=== PATIENT | female | born 1950 | race Caucasian/White ===

== ENCOUNTER 2017-07-02 08:10 | Inpatient (IN) | payer OTHER, SELFPAY ==
[~2017-07-02] VITALS: Ht 162.6 cm; Wt 120.7 kg
[~2017-07-02 08:10] MED LIST: ALBU3IS INH; ALBU90I INH; ALBU90OI6 INH; AMOCLA875 PO; AZIT500 PO; Augmentin 875-1 EACH PO; BUDE6HFA; CEFU500 PO; DELTASONE20 MG PO; FLUSAL2505 IH; FLUT.05NI; Flonase 0.05% N16 GM; HYDCHL25 PO; IPRAIS NEB; LASIX; MODA200 PO; NYST100SU PO; POTASSIUM; PRED10 PO; PRED20 PO; SACC250C PO; Zithromax250 MG PO
[2017-07-02 08:52] LABS: BASOPHILS ABSOLUTE AUTO 0.05 K/mm3 (0.00-0.23); BASOPHILS PERCENT AUTO 1 % (0-2); EOSINOPHILS ABSOLUTE AUTO 0.02 K/mm3 (0.00-0.68); EOSINOPHILS PERCENT AUTO 0 % (0-6); Hematocrit 44.4 % (33.0-51.0); Hemoglobin 13.2 g/dL (11.5-16.0); IMMATURE GRAN ABSOLUTE AUTO 0.21 K/mm3 (0.00-0.10); IMMATURE GRAN PERCENT AUTO 2 % (0-1); LYMPHOCYTES ABSOLUTE AUTO 0.99 K/mm3 (0.84-5.20); LYMPHOCYTES PERCENT AUTO 9 % (21-46); MONOCYTES PERCENT AUTO 5 % (4-13); Mean Corpuscular HGB 27.5 pg (26.0-34.0); Mean Corpuscular HGB Conc 29.7 g/dL (31.5-36.5); Mean Corpuscular Volume 93 fL (80-100); Mean Platelet Volume 10.3 fL (9.1-12.4); NEUTROPHILS ABSOLUTE AUTO 8.85 K/mm3 (1.96-9.15); NEUTROPHILS PERCENT AUTO 83 % (41-73); Platelet Count 232 K/mm3 (150-400); RDW Standard Deviation 44.1 fL (35.1-46.3); White Blood Cell Count 10.62 K/mm3 (4.00-11.30)
[2017-07-02 09:06] LABS: PO2 Arterial 77.5 mmHg (80-100)
[2017-07-02 09:07] LABS: pH Blood Arterial 7.23 (7.35-7.45)
[2017-07-02 09:08] LABS: PCO2 Arterial > 105 mmHg (35-45)
[2017-07-02 09:08] LABS: Alanine Aminotransfer (ALT/SGP 22 U/L (12-78); Albumin, Blood 2.8 g/dL (3.4-5.0); Albumin/Globulin Ratio 0.6 (0.8-1.8); Alk Phos 83 U/L (50-136); Anion Gap 3 mmol/L (6-16); Aspartate Aminotrans (AST/SGOT 13 U/L (12-37); Bilirubin, Total 0.4 mg/dL (0.1-1.0); Blood Urea Nitrogen 19 mg/dL (8-24); Bun/Creatinine Ratio 34.2 (12.0-20.0); CO2, Blood 43 mmol/L (21-32); Calcium, Blood 9.1 mg/dL (8.5-10.1); Chloride, Blood 93 mmol/L (98-108); Creatinine, Blood 0.56 mg/dL (0.40-1.00); Glomerular Filtration Rate >60 (60-); Glucose, Blood 98 mg/dL (70-99); Potassium, Blood 4.7 mmol/L (3.5-5.5); Sodium, Blood 139 mmol/L (136-145); Total Protein, Blood 7.8 g/dL (6.4-8.2); Troponin I <0.015 ng/mL (0.000-0.040)
[2017-07-02] MEDS ORDERED: PRED10 PO (14:22)
[2017-07-02] MEDS ORDERED: AZIT250 PO (14:31)
[2017-07-02] MEDS ORDERED: BUDE6HFA INH (14:34)
[2017-07-02] MEDS ORDERED: SPIRIVA RESPIMAT4 G1 PO (14:35)
[2017-07-02] MEDS ORDERED: ALBU2.5V5 INH (14:37)
[2017-07-02] MEDS ORDERED: DOXY100T53 PO (14:38)
[2017-07-02 17:18] LABS: Source, Urine Clean Catch
[2017-07-02 17:23] LABS: Appearance, Urine Clear (Clear); Bilirubin, Urine Neg (Neg); Blood, Urine 3+ (Neg); Color, Urine Amber (P-Yellow); Glucose Qualitative, Urine Neg (Neg); Ketones, Urine 3+ (Neg); Leukocyte Esterase, Urine 1+ (Neg); Nitrite, Urine Pos (Neg); Protein, Urine 2+ (Neg); Urobilinogen, Urine 1+ (Normal)
[2017-07-02 17:35] LABS: Granular Casts 0-2 /lpf (0); Hyaline Casts 0-2 /lpf (0-2)
[2017-07-02 17:36] LABS: Bacteria Few /hpf; Squamous Epithelial Cells Mod /hpf (Few)
[2017-07-02 17:37] LABS: Yeast/Fungi Urine Rare /hpf
[2017-07-03 04:23] LABS: BASOPHILS ABSOLUTE AUTO 0.01 K/mm3 (0.00-0.23); BASOPHILS PERCENT AUTO 0 % (0-2); EOSINOPHILS PERCENT AUTO 0 % (0-6); Hematocrit 38.4 % (33.0-51.0); Hemoglobin 11.7 g/dL (11.5-16.0); IMMATURE GRAN ABSOLUTE AUTO 0.15 K/mm3 (0.00-0.10); IMMATURE GRAN PERCENT AUTO 2 % (0-1); LYMPHOCYTES PERCENT AUTO 6 % (21-46); MONOCYTES ABSOLUTE AUTO 0.08 K/mm3 (0.16-1.47); MONOCYTES PERCENT AUTO 1 % (4-13); Mean Corpuscular HGB 27.9 pg (26.0-34.0); Mean Corpuscular HGB Conc 30.5 g/dL (31.5-36.5); Mean Corpuscular Volume 92 fL (80-100); Mean Platelet Volume 10.7 fL (9.1-12.4); NEUTROPHILS ABSOLUTE AUTO 6.27 K/mm3 (1.96-9.15); NEUTROPHILS PERCENT AUTO 91 % (41-73); Platelet Count 221 K/mm3 (150-400); RDW Coefficient Variation 12.9 % (11.7-14.2); RDW Standard Deviation 42.9 fL (35.1-46.3); Red Blood Cell Count 4.19 M/mm3 (3.80-5.20); White Blood Cell Count 6.91 K/mm3 (4.00-11.30)
[2017-07-03 04:42] LABS: Anion Gap 1 mmol/L (6-16); Blood Urea Nitrogen 21 mg/dL (8-24); CO2, Blood 41 mmol/L (21-32); Calcium, Blood 8.8 mg/dL (8.5-10.1); Chloride, Blood 98 mmol/L (98-108); Creatinine, Blood 0.49 mg/dL (0.40-1.00); Glomerular Filtration Rate >60 (60-); Glucose, Blood 139 mg/dL (70-99); Magnesium, Blood 2.3 mg/dL (1.6-2.4); Potassium, Blood 4.9 mmol/L (3.5-5.5); Sodium, Blood 140 mmol/L (136-145)
[2017-07-03 05:23] LABS: PCO2 Arterial 88 mmHg (35-45); PO2 Arterial 84.4 mmHg (80-100); pH Blood Arterial 7.31 (7.35-7.45)
[2017-07-04 04:06] LABS: BASOPHILS ABSOLUTE AUTO 0.01 K/mm3 (0.00-0.23); BASOPHILS PERCENT AUTO 0 % (0-2); EOSINOPHILS PERCENT AUTO 0 % (0-6); Hematocrit 39.1 % (33.0-51.0); Hemoglobin 12.2 g/dL (11.5-16.0); IMMATURE GRAN ABSOLUTE AUTO 0.14 K/mm3 (0.00-0.10); IMMATURE GRAN PERCENT AUTO 2 % (0-1); LYMPHOCYTES ABSOLUTE AUTO 0.47 K/mm3 (0.84-5.20); LYMPHOCYTES PERCENT AUTO 6 % (21-46); MONOCYTES ABSOLUTE AUTO 0.17 K/mm3 (0.16-1.47); MONOCYTES PERCENT AUTO 2 % (4-13); Mean Corpuscular HGB 28.2 pg (26.0-34.0); Mean Corpuscular HGB Conc 31.2 g/dL (31.5-36.5); Mean Corpuscular Volume 91 fL (80-100); Mean Platelet Volume 10.6 fL (9.1-12.4); NEUTROPHILS ABSOLUTE AUTO 7.28 K/mm3 (1.96-9.15); NEUTROPHILS PERCENT AUTO 90 % (41-73); Platelet Count 220 K/mm3 (150-400); RDW Coefficient Variation 12.9 % (11.7-14.2); RDW Standard Deviation 42.3 fL (35.1-46.3); Red Blood Cell Count 4.32 M/mm3 (3.80-5.20); White Blood Cell Count 8.07 K/mm3 (4.00-11.30)
[2017-07-04 04:33] LABS: Anion Gap 2 mmol/L (6-16); Blood Urea Nitrogen 23 mg/dL (8-24); Bun/Creatinine Ratio 42.6 (12.0-20.0); CO2, Blood 39 mmol/L (21-32); Calcium, Blood 9.1 mg/dL (8.5-10.1); Chloride, Blood 99 mmol/L (98-108); Creatinine, Blood 0.54 mg/dL (0.40-1.00); Glomerular Filtration Rate >60 (60-); Glucose, Blood 127 mg/dL (70-99); Sodium, Blood 140 mmol/L (136-145)
[2017-07-04 05:07] LABS: PO2 Arterial 67.5 mmHg (80-100); pH Blood Arterial 7.37 (7.35-7.45)
[2017-07-04 05:08] LABS: PCO2 Arterial 70.7 mmHg (35-45)
[2017-07-05 03:50] LABS: BASOPHILS ABSOLUTE AUTO 0.01 K/mm3 (0.00-0.23); BASOPHILS PERCENT AUTO 0 % (0-2); EOSINOPHILS PERCENT AUTO 0 % (0-6); Hematocrit 37.8 % (33.0-51.0); Hemoglobin 11.9 g/dL (11.5-16.0); IMMATURE GRAN ABSOLUTE AUTO 0.22 K/mm3 (0.00-0.10); IMMATURE GRAN PERCENT AUTO 4 % (0-1); LYMPHOCYTES ABSOLUTE AUTO 0.46 K/mm3 (0.84-5.20); LYMPHOCYTES PERCENT AUTO 7 % (21-46); MONOCYTES ABSOLUTE AUTO 0.22 K/mm3 (0.16-1.47); MONOCYTES PERCENT AUTO 4 % (4-13); Mean Corpuscular HGB 27.7 pg (26.0-34.0); Mean Corpuscular HGB Conc 31.5 g/dL (31.5-36.5); Mean Platelet Volume 10.6 fL (9.1-12.4); NEUTROPHILS ABSOLUTE AUTO 5.37 K/mm3 (1.96-9.15); NEUTROPHILS PERCENT AUTO 86 % (41-73); Platelet Count 216 K/mm3 (150-400); RDW Coefficient Variation 12.9 % (11.7-14.2); RDW Standard Deviation 41.7 fL (35.1-46.3); Red Blood Cell Count 4.29 M/mm3 (3.80-5.20); White Blood Cell Count 6.28 K/mm3 (4.00-11.30)
[2017-07-05 03:56] LABS: Mean Corpuscular Volume 88 fL (80-100)
[2017-07-05 04:11] LABS: Anion Gap 2 mmol/L (6-16); Blood Urea Nitrogen 23 mg/dL (8-24); Bun/Creatinine Ratio 39.9 (12.0-20.0); CO2, Blood 39 mmol/L (21-32); Calcium, Blood 8.9 mg/dL (8.5-10.1); Chloride, Blood 98 mmol/L (98-108); Creatinine, Blood 0.58 mg/dL (0.40-1.00); Glomerular Filtration Rate >60 (60-); Glucose, Blood 127 mg/dL (70-99); Potassium, Blood 4.7 mmol/L (3.5-5.5); Sodium, Blood 139 mmol/L (136-145)
[2017-07-05] MEDS ORDERED: GUAI600T33 PO (10:33)
[2017-07-05] MEDS ORDERED: ACET325 PO (10:33)
[2017-07-05] MEDS ORDERED: FAMO20 PO (10:33)
[2017-07-05] MEDS ORDERED: NICO21TP TOP (10:34)
== END 2017-07-05 13:50 | disposition home or self-care (01) | DRG 189 ==
LOC: ER 08:10 → PCU 11:05
PROVIDERS: Family Medicine; Internal Medicine
DX: J96.22 Acute and chronic respiratory failure with hypercapnia (principal); G93.41 Metabolic encephalopathy; R65.10 Systemic inflammatory response syndrome (SIRS) of non-infectious origin without acute organ dysfunction; J44.0 Chronic obstructive pulmonary disease with (acute) lower respiratory infection; Z99.81 Dependence on supplemental oxygen; J44.1 Chronic obstructive pulmonary disease with (acute) exacerbation; J96.21 Acute and chronic respiratory failure with hypoxia; D86.9 Sarcoidosis, unspecified; J20.8 Acute bronchitis due to other specified organisms
CPT/HCPCS: 36415; 36600; 71045; 80048; 80053; 81001; 82803; 83605; 83735; 83880; 84145; 84484; 85025; 87040; 87086; 93005; 93010; 94640; 94644; 94660; 94762; 96365; 96375; 99285; J0456; J0696; J1650; J2930; J3480; J7050

== ENCOUNTER 2018-06-15 11:48 | Emergency (ER) | payer OTHER ==
[~2018-06-15] VITALS: Ht 162.6 cm; Wt 128.8 kg
[~2018-06-15 11:48] MED LIST changes: +ACET325 PO; +ALBU2.5V5 INH; +AZIT250 PO; +BUDE6HFA INH; +DOXY100T53 PO; +FAMO20 PO; +GUAI600T33 PO; +NICO21TP TOP; +SPIRIVA RESPIMAT4 G1 PO
[2018-06-15 13:09] LABS: BASOPHILS ABSOLUTE AUTO 0.09 K/mm3 (0.00-0.23); BASOPHILS PERCENT AUTO 1 % (0-2); EOSINOPHILS ABSOLUTE AUTO 0.07 K/mm3 (0.00-0.68); EOSINOPHILS PERCENT AUTO 1 % (0-6); Hematocrit 46.1 % (33.0-51.0); Hemoglobin 14.6 g/dL (11.5-16.0); IMMATURE GRAN ABSOLUTE AUTO 0.42 K/mm3 (0.00-0.10); IMMATURE GRAN PERCENT AUTO 4 % (0-1); LYMPHOCYTES ABSOLUTE AUTO 0.73 K/mm3 (0.84-5.20); LYMPHOCYTES PERCENT AUTO 7 % (21-46); MONOCYTES ABSOLUTE AUTO 0.71 K/mm3 (0.16-1.47); MONOCYTES PERCENT AUTO 7 % (4-13); Mean Corpuscular HGB 28.9 pg (26.0-34.0); Mean Corpuscular HGB Conc 31.7 g/dL (31.5-36.5); Mean Corpuscular Volume 91 fL (80-100); NEUTROPHILS ABSOLUTE AUTO 8.86 K/mm3 (1.96-9.15); NEUTROPHILS PERCENT AUTO 82 % (41-73); RDW Coefficient Variation 12.8 % (11.7-14.2); RDW Standard Deviation 42.8 fL (35.1-46.3); Red Blood Cell Count 5.05 M/mm3 (3.80-5.20); White Blood Cell Count 10.88 K/mm3 (4.00-11.30)
[2018-06-15 13:13] LABS: Mean Platelet Volume 10.7 fL (9.1-12.4)
[2018-06-15 13:20] LABS: Platelet Count 228 K/mm3 (150-400)
[2018-06-15 13:22] LABS: Base Excess Venous 20.9 mmol/L; Bicarbonate Venous 40.6 mmol/L (24.0-30.0); PCO2 Venous 66.5 mmHg (38-42); PO2 Venous 37.7 mmHg (38-42); pH Blood Venous 7.44 (7.34-7.37)
[2018-06-15 13:27] LABS: Alanine Aminotransfer (ALT/SGP 39 U/L (12-78); Albumin/Globulin Ratio 0.7 (0.8-1.8); Alk Phos 102 U/L (50-136); Anion Gap 4 mmol/L (6-16); Aspartate Aminotrans (AST/SGOT 24 U/L (12-37); Bilirubin, Total 0.4 mg/dL (0.1-1.0); Blood Urea Nitrogen 17 mg/dL (8-24); Bun/Creatinine Ratio 25.1 (12.0-20.0); CO2, Blood 41 mmol/L (21-32); Calcium, Blood 9.4 mg/dL (8.5-10.1); Chloride, Blood 95 mmol/L (98-108); Creatinine, Blood 0.68 mg/dL (0.40-1.00); Globulin, Blood 4.1 g/dL (2.2-4.0); Glomerular Filtration Rate >60 (60-); Glucose, Blood 105 mg/dL (70-99); Potassium, Blood 3.9 mmol/L (3.5-5.5); Sodium, Blood 140 mmol/L (136-145); Total Protein, Blood 7.1 g/dL (6.4-8.2); Troponin I <0.015 ng/mL (0.000-0.040)
[2018-06-15 13:54] LABS: Source, Urine Clean Catch
[2018-06-15 14:04] LABS: Appearance, Urine Cloudy (Clear); Blood, Urine 1+ (Neg); Color, Urine Yellow (P-Yellow); Glucose Qualitative, Urine Neg (Neg); Ketones, Urine Neg (Neg); Leukocyte Esterase, Urine 1+ (Neg); Nitrite, Urine Neg (Neg); Protein, Urine 1+ (Neg); Specific Gravity, Urine 1.025 (1.003-1.022); Urobilinogen, Urine 2+ (Normal)
[2018-06-15 14:15] LABS: Bilirubin, Urine 1+ (Neg)
[2018-06-15 14:19] LABS: Bacteria Rare /hpf; Calcium Oxalate Crystals Many /hpf; Red Blood Cells, Urine 0-2 /hpf (0-2); Squamous Epithelial Cells Few /hpf (Few); White Blood Cells, Urine 0-2 /hpf (0-5)
[2018-06-15] MEDS ORDERED: Prednisone20 MG PO (15:45)
== END 2018-06-15 16:17 | disposition home or self-care (01) ==
LOC: ER 11:48
PROVIDERS: Emergency Medicine; Physician Assistant
DX: J44.1 Chronic obstructive pulmonary disease with (acute) exacerbation (principal); F17.200 Nicotine dependence, unspecified, uncomplicated; Z88.8 Allergy status to other drugs, medicaments and biological substances; Z88.5 Allergy status to narcotic agent; Z79.899 Other long term (current) drug therapy
CPT/HCPCS: 36415; 71046; 80053; 81001; 82803; 83880; 84484; 85025; 87077; 87086; 87186; 93005; 93010; 96361; 96374; 99285-25; J2930; J7030

== ENCOUNTER 2019-09-13 10:00 | Inpatient (IN) | payer OTHER ==
[~2019-09-13] VITALS: Ht 170.2 cm; Wt 117.0 kg
[~2019-09-13 10:00] MED LIST changes: -ALBU2.5V5 INH; -BUDE6HFA INH; +Prednisone20 MG PO
[2019-09-13 10:18] LABS: BASOPHILS ABSOLUTE AUTO 0.04 K/mm3 (0.00-0.23); BASOPHILS PERCENT AUTO 0 % (0-2); EOSINOPHILS ABSOLUTE AUTO 0.06 K/mm3 (0.00-0.68); EOSINOPHILS PERCENT AUTO 1 % (0-6); Hematocrit 42.5 % (33.0-51.0); Hemoglobin 12.5 g/dL (11.5-16.0); IMMATURE GRAN ABSOLUTE AUTO 0.12 K/mm3 (0.00-0.10); IMMATURE GRAN PERCENT AUTO 1 % (0-1); LYMPHOCYTES ABSOLUTE AUTO 0.71 K/mm3 (0.84-5.20); LYMPHOCYTES PERCENT AUTO 7 % (21-46); MONOCYTES ABSOLUTE AUTO 0.55 K/mm3 (0.16-1.47); MONOCYTES PERCENT AUTO 5 % (4-13); Mean Corpuscular HGB Conc 29.4 g/dL (31.5-36.5); Mean Corpuscular Volume 95 fL (80-100); Mean Platelet Volume 10.3 fL (9.1-12.4); NEUTROPHILS ABSOLUTE AUTO 9.45 K/mm3 (1.96-9.15); NEUTROPHILS PERCENT AUTO 87 % (41-73); Platelet Count 181 K/mm3 (150-400); RDW Standard Deviation 45.1 fL (35.1-46.3); Red Blood Cell Count 4.47 M/mm3 (3.80-5.20); White Blood Cell Count 10.93 K/mm3 (4.00-11.30)
[2019-09-13 10:37] LABS: Alanine Aminotransfer (ALT/SGP 12 U/L (12-78); Albumin, Blood 2.7 g/dL (3.4-5.0); Albumin/Globulin Ratio 0.6 (0.8-1.8); Alk Phos 100 U/L (50-136); Anion Gap 3 mmol/L (6-16); Aspartate Aminotrans (AST/SGOT 14 U/L (12-37); Bilirubin, Total 0.5 mg/dL (0.1-1.0); Blood Urea Nitrogen 21 mg/dL (8-24); Bun/Creatinine Ratio 32.7 (12.0-20.0); CO2, Blood 38 mmol/L (21-32); Calcium, Blood 8.7 mg/dL (8.5-10.1); Chloride, Blood 98 mmol/L (98-108); Creatinine, Blood 0.64 mg/dL (0.40-1.00); Globulin, Blood 4.3 g/dL (2.2-4.0); Glomerular Filtration Rate >60 (60-); Glucose, Blood 132 mg/dL (70-99); Potassium, Blood 4.8 mmol/L (3.5-5.5); Sodium, Blood 139 mmol/L (136-145); Troponin I <0.015 ng/mL (0.000-0.040)
[2019-09-13 10:44] LABS: PCO2 Arterial 103 mmHg (35-45); PO2 Arterial 70.3 mmHg (80-100); pH Blood Arterial 7.24 (7.35-7.45)
[2019-09-13 11:41] LABS: Base Excess Venous 17.8 mmol/L; Bicarbonate Venous 36.8 mmol/L (24.0-30.0); PCO2 Venous 93.3 mmHg (38-42); pH Blood Venous 7.29 (7.34-7.37)
[2019-09-13] MEDS ORDERED: ALBU2.5V5 NEB (12:12)
[2019-09-13] MEDS ORDERED: FLUT1DIS5 INH (12:12)
[2019-09-13] MEDS ORDERED: TRAZ150T57 PO (13:27)
[2019-09-13 14:26] LABS: Bicarbonate Venous 38.1 mmol/L (24.0-30.0); PCO2 Venous 79.7 mmHg (38-42); pH Blood Venous 7.35 (7.34-7.37)
--- NOTE | 2019-09-13 18:02 | NUR ---
MEAL ASSIST = ASPIRATION RISK PATIENT SAT UP AT [address] ON NC FROM BIPAP. PATIENT WAS UNABLE TO STAY AWAKE WHILE EATING. PATIENT EDUCATED THAT SHE COULD NOT EAT UNTIL SHE COULD STAY AWAKE FOR A LONGER PERIOD OF TIME. BIPAP PLACE BACK ON PATIENT.
--- NOTE | 2019-09-13 18:03 | NUR ---
PCU DAYSHIFT SUMMARY PATIENT ALERT AND ORIENTED TO SELF AND LOCATION - DROWSINESS/WEAKNESS NOTED. PATIENT MODERATELY RESTFUL - AWAKES WITH VERBAL STIMULI. HEART RATE ST C/ BBB IN 110'S. BIPAP IN PLACE FOR MAJORITY OF THIS RN'S SHIFT. ATTEMPTED TO TRANSFER PATIENT UP TO BEDSIDE COMMODE, WHILE PATIENT WAS DANGLING FROM BED PATIENT WAS UNABLE TO SUPPORT TORSO - PATIENT UNABLE TO TRANSFER AT THIS TIME. PATIENT PLACED ON BEDPAN - NO URINE NOTED. PATIENT ON 3 LPM NC WHEN NOT ON BIPAP - HOME DOSE OF O2. SMALL SKIN TEAR NOTED BETWEEN BUTTOCKS. PATIENT INCONTINENT OF STOOL THIS SHIFT. PATIENT IS NOW RESTFUL ON BEDREST WITH BIPAP IN PLACE AND CONTINUOUS BIOX MONITORING. WILL CONTINUE TO MONITOR AND REPORT TO NOC SHIFT RN.
[2019-09-13 20:08] LABS: Source, Urine Catheter
[2019-09-13 20:21] LABS: Blood, Urine 3+ (Neg); Glucose Qualitative, Urine Neg (Neg); Ketones, Urine Neg (Neg); Leukocyte Esterase, Urine 1+ (Neg); Nitrite, Urine Neg (Neg); Protein, Urine 2+ (Neg); Specific Gravity, Urine 1.025 (1.003-1.022); Urobilinogen, Urine 3+ (Normal)
[2019-09-13 20:24] LABS: Appearance, Urine Cloudy (Clear); Bilirubin, Urine 1+ (Neg); Color, Urine Amber (P-Yellow)
[2019-09-13 20:26] LABS: Bacteria Many /hpf; Red Blood Cells, Urine Rare /hpf (0-2); Squamous Epithelial Cells Not Seen /hpf (Few); White Blood Cells, Urine 25-50 /hpf (0-5)
--- NOTE | 2019-09-14 01:00 | NUR ---
Update: Patient woke up and was able to interact with me and nurse Eric. She was coherent and able to verbalize why she was in the hospital.
[2019-09-14 03:50] LABS: BASOPHILS ABSOLUTE AUTO 0.03 K/mm3 (0.00-0.23); BASOPHILS PERCENT AUTO 0 % (0-2); EOSINOPHILS ABSOLUTE AUTO 0.08 K/mm3 (0.00-0.68); EOSINOPHILS PERCENT AUTO 1 % (0-6); Hematocrit 39.6 % (33.0-51.0); Hemoglobin 11.6 g/dL (11.5-16.0); IMMATURE GRAN ABSOLUTE AUTO 0.07 K/mm3 (0.00-0.10); IMMATURE GRAN PERCENT AUTO 1 % (0-1); LYMPHOCYTES ABSOLUTE AUTO 0.84 K/mm3 (0.84-5.20); LYMPHOCYTES PERCENT AUTO 12 % (21-46); MONOCYTES ABSOLUTE AUTO 0.43 K/mm3 (0.16-1.47); MONOCYTES PERCENT AUTO 6 % (4-13); Mean Corpuscular HGB Conc 29.3 g/dL (31.5-36.5); Mean Corpuscular Volume 95 fL (80-100); Mean Platelet Volume 10.7 fL (9.1-12.4); NEUTROPHILS ABSOLUTE AUTO 5.61 K/mm3 (1.96-9.15); NEUTROPHILS PERCENT AUTO 80 % (41-73); Platelet Count 145 K/mm3 (150-400); RDW Coefficient Variation 12.8 % (11.7-14.2); RDW Standard Deviation 45.1 fL (35.1-46.3); Red Blood Cell Count 4.15 M/mm3 (3.80-5.20); White Blood Cell Count 7.06 K/mm3 (4.00-11.30)
[2019-09-14 04:07] LABS: Blood Urea Nitrogen 27 mg/dL (8-24); Bun/Creatinine Ratio 44.9 (12.0-20.0); Calcium, Blood 8.3 mg/dL (8.5-10.1); Chloride, Blood 97 mmol/L (98-108); Glomerular Filtration Rate >60 (60-); Glucose, Blood 85 mg/dL (70-99); Potassium, Blood 4.5 mmol/L (3.5-5.5); Sodium, Blood 142 mmol/L (136-145)
[2019-09-14 04:31] LABS: Anion Gap 2 mmol/L (6-16); CO2, Blood 43 mmol/L (21-32)
--- NOTE | 2019-09-14 06:44 | NUR ---
Shift Summary Patient was drowsy at beginning of the shift but became more alert and oreinted throughout the night. Interacted well with staff. Wore BIPAP majority of the night and tolerated several 15 minute breaks from BIPAP, on 5 LPM via nasal cannula. Pt drank fluids and was repositioned several times.
--- NOTE | 2019-09-14 07:18 | NUR ---
ASSUMED CARE AT 0700, REPORT FROM CALVIN SUN. SITTING IN HIGH FOWLERS IN BED WITH BIPAP ON. CURRENT SETTINGS 45% 02 12/02 RATE OF 14. AWAKE AND ANSWERING QUESTIONS AT THIS TIME. KAUR IN PLACE DRAINING STRAW COLORED URINE. RT TO ROOM, WILL CONTINUE TO MONITOR.
--- NOTE | 2019-09-14 09:44 | NUR ---
REMOVED BIPAP PER DR. BECERRIL. PLACED ON 5L NC 02. PT STATES NORMAL HOME O2 USE IS 3-4L. BASELINE O2 SATS PER PT ARE 89%. WILL CONTINUE TO MONITOR.
--- NOTE | 2019-09-14 14:00 | NUR ---
Patient is lying in bed and alert. Patient shares about her fall and her medical issues. Patient talks about her family and her belief system. Patient says that she hates to bother God with her small needs. I listen empathically, normalize patient's experience and provide pastoral certified travel counselor, recitation of scripture and prayer. PAtient responds well and shows signs of improved peace. I will continue to remain available to patient and family.
--- NOTE | 2019-09-14 15:45 | NUR ---
PT STATES SHE IS FEELING FOGGY HEADED. STATES SHE THINKS SHE NEEDS HER BIPAP ON. RT TO ROOM TO EVALUATE. BIPAP STARTED BY RT.
--- NOTE | 2019-09-14 17:39 | NUR ---
SHIFT SUMMARY; A/A/OX4 THROUGHOUT SHIFT. BIPAP REMOVED IN AM PER DR. BECERRIL. PLACED ON 5L O2 VIA NC. PT STATES WEARS 3-4L WHILE AT HOME WITH BASELINE SATS 89-90%. REQUESTED BIPAP IN LATE AFTERNOON FOR FEELING "WHOOZY IN HEAD". RT PLACED AT 40% 12/02. WORE FOR APPROX 1 HOUR. 5L NC AT THIS TIME, STATES IS FEELING WELL. KAUR CATH IN PLACE DRAINING CLEAR YELLOW URINE. ASSISTED TO BEDSIDE COMMODE DURING SHIFT WITH 1 PERSON ASSIST. VSS, WILL CONTINUE TO MONITOR UNTIL CHANGE OF SHIFT.
--- NOTE | 2019-09-14 19:40 | NUR ---
ASSUMED CARE OF PT, SHE IS RESTING QUIETLY RECLINING IN BED, WATCHING TV AND CONVERSING WITH SON ON TELEPHONE IN ROOM. SHE DENIES N/V, DENIES CP/PRESSURE, DENIES SOB/DYSPNEA GREATER THAN BASELINE, SHE IS SPEAKING IN FULL SENTENCES AND IS ABLE TO STATE THAT SHE IS IN [facility], 2019 AND DESCRIBES EVENTS SURROUNDING ADMISSION TO HOSPITAL. LUNGS ARE COARSE THROUGHOUT, DIM BASES BILAT, SATS ARE MAINTAINED TO LOW 90S WITH OXYGEN VIA NASAL CANNULA AT 5L/MIN HOME FLOW RATE IS 3-4 L/MIN, NO VISIBLE INCREASED WORK OF BREATHING AT THIS TIME. HRR, S1 AND S2 PRESENT, DIFFICULT TO AUSCULTATE SECONDARY TO RESPIRATORY NOISE, PRESSURES MAINTAINING, SKIN IS PWD, BRISK CAP REFILL. NORMOACTIVE BOWEL TONES PRESENT X 4, ABD SOFT, NO GRIMACING OR TENDERNESS REPORTED WITH PALPATION. KAUR CATH IN PLACE DRAINING CLEAR DARK YELLOW URINE TO GRAVITY. IV TO LEFT FOREARM DOES NOT FLUSH AT THIS TIME, DC'D CATH INTACT, PT TOLERATED WELL. IV TO RIGHT AC FLUSHES WELL, SITE WNL, DRESSING CDI.
--- NOTE | 2019-09-15 05:51 | NUR ---
Pt rests quietly throughout shift, did wear bipap a few times for around 1-1.5 hours each time, she has expressed frustration with hospital bipap mask. She denies nausea throughout shift. Sats maintain with oxygen at 5 l/min via nasal cannula, home flow rate is 3-4 l/min, she has requested bipap in addition to requesting breaks from bipap. She remains fully oriented and easily arousable throughout shift.
--- NOTE | 2019-09-15 07:23 | NUR ---
ASSUMED CARE: PT AWAKE, TALKING TO STAFF. 96% ON 5L O2. TITRATED DOWN TO 4L. DENIES NEEDS OR CONCERNS AT THIS TIME.
--- NOTE | 2019-09-15 10:28 | NUR ---
REPORT GIVEN TO SAURABH SIMPSON. PT TRANSPORTED TO ROOM 357 VIA WHEEL CHAIR BY DEVELOPER ARCHITECT AFTER BATH GIVEN. NO ACUTE NEEDS OR CONCERNS.
--- NOTE | 2019-09-15 15:18 | NUR ---
TRANSER OF CARE BEDSIDE REPORT GIVEN TO RECEIVING NURSE ALANNA AND PATIENT.
--- NOTE | 2019-09-15 18:17 | NUR ---
SHIFT SUMMARY PCU TRANSFER TO MED FLOOR THIS SHIFT. PT DENIES PAIN, PLEASANT AND ORIENTED. HAD BETWEEN 3-4 L OXYGEN BY NC WHILE AWAKE, AND USES CPAP FOR NAPS. CALLS APPROPRIATELY TO GET OOB FOR SBA TO [facility]. WCTM
--- NOTE | 2019-09-15 18:45 | NUR ---
VERY FOUL SMELLING URINE, DR BECERRIL INFORMED AND ORDERED UA
[2019-09-15 22:54] LABS: Source, Urine Voided
[2019-09-15 22:57] LABS: Bilirubin, Urine Neg (Neg); Blood, Urine 1+ (Neg); Glucose Qualitative, Urine Neg (Neg); Ketones, Urine Neg (Neg); Leukocyte Esterase, Urine 2+ (Neg); Nitrite, Urine Pos (Neg); Protein, Urine Neg (Neg); Specific Gravity, Urine 1.005 (1.003-1.022); Urobilinogen, Urine NORM (Normal)
[2019-09-15 23:02] LABS: Appearance, Urine Hazy (Clear); Color, Urine Yellow (P-Yellow)
[2019-09-15 23:03] LABS: Bacteria Many /hpf; Red Blood Cells, Urine 0-2 /hpf (0-2); Squamous Epithelial Cells Few /hpf (Few); White Blood Cells, Urine 25-50 /hpf (0-5)
[2019-09-16 04:44] LABS: PCO2 Venous 40.1 mmHg (38-42); PO2 Venous 198 mmHg (38-42); pH Blood Venous 7.61 (7.34-7.37)
[2019-09-16 04:45] LABS: Base Excess Venous 18.4 mmol/L; Bicarbonate Venous 40.9 mmol/L (24.0-30.0)
[2019-09-16 05:10] LABS: Anion Gap 1 mmol/L (6-16); Blood Urea Nitrogen 18 mg/dL (8-24); Bun/Creatinine Ratio 29.2 (12.0-20.0); CO2, Blood 39 mmol/L (21-32); Calcium, Blood 8.6 mg/dL (8.5-10.1); Chloride, Blood 100 mmol/L (98-108); Creatinine, Blood 0.62 mg/dL (0.40-1.00); Glomerular Filtration Rate >60 (60-); Glucose, Blood 98 mg/dL (70-99); Hematocrit 35.9 % (33.0-51.0); Hemoglobin 11.6 g/dL (11.5-16.0); Mean Corpuscular HGB 28.2 pg (26.0-34.0); Mean Corpuscular HGB Conc 32.3 g/dL (31.5-36.5); Mean Platelet Volume 10.9 fL (9.1-12.4); Platelet Count 183 K/mm3 (150-400); Potassium, Blood 4.5 mmol/L (3.5-5.5); RDW Coefficient Variation 13.1 % (11.7-14.2); RDW Standard Deviation 41.1 fL (35.1-46.3); Red Blood Cell Count 4.11 M/mm3 (3.80-5.20); Sodium, Blood 140 mmol/L (136-145); White Blood Cell Count 8.55 K/mm3 (4.00-11.30)
[2019-09-16 05:11] LABS: Mean Corpuscular Volume 87 fL (80-100)
--- NOTE | 2019-09-16 06:19 | NUR ---
SHIFT SUMMARY PT IS A 69 Y/O FEMALE, ADMITTED FOR ACUTE ON CHRONIC RESPIRATORY FAILURE. PT IS A&O X 4, 1PA TO THE BATHROOM C FWW. NO COMPAINTS OF PAIN OR NAUSEA, BUT MILD INCREASED SOB C EXERTION. PT IS ON 3-4L O2 VIA NC AT BASELINE, AND USES A BIPAP WHILE SLEEPING. VITAL SIGNS STABLE. TELE SHOWED NSR IN THE 80S. PT SLEPT WELL THROUGH THE NIGHT. NO ACUTE CHANGES IN PT CONDITION NOTED. WILL CONTINUE TO MONITOR AND TREAT PER EMAR UNTIL HAND OFF TO DAY SHIFT RN.
--- NOTE | 2019-09-16 16:45 | NUR ---
SHIFT SUMMARY PATIENT DENIES PAIN, NAUSEA, AND SHORTNSS OF BREATH. PATIENT SWITCHING BETWEEN BIPAP AND NASAL CANULA THIS SHIFT TO MAINTAIN OXYGEN SATURATION ABOVE 90%. RT FOLLOWING PATIENT. PATIENT UP TO [facility]SC ONE ASSIST. PATIENT STATES SHE STILL FEELS WEAK. CALL LIGHT IN REACH.
--- NOTE | 2019-09-17 05:00 | NUR ---
SHIFT SUMMARY PT PLEASANT AND COOPERATIVE. RESPIRATIONS EVEN AND UNLABORED, HOWEVER PT'S LUNGS CONTINUE TO SOUND COARSE AND WHEEZY THROUGHOUT. PT REMAINED ON 4 L O2, VIA NC WHILE AWAKE, AND BLED INTO BIPAP WHILE SLEEPING. PT DOES GET SOME SOB WITH EXERTION BUT RECOVERS WELL. RECLINER REQUESTED BY PATIENT THIS AM. RECLINER PLACED IN ROOM. PT HAS REMAINED IN BED THROUGHOUT THE EVENING BUT REQUESTED TO GET UP TO RECLINER DURING THE DAY. NO COMPLAINTS OF PAIN. VITAL SIGNS STABLE. NO ACUTE CHANGES THIS SHIFT. WILL CONTINUE TO MONITOR AND REPORT TO DAY RN.
--- NOTE | 2019-09-17 14:33 | NUR ---
PATIENT HAS BEEN WITHOUT PAIN AND DISCOMFORT TODAY. O2 SATS STRUGGLE TO REMAIN ABOVE 90%, HAD TO FINALLY TURN OXYGEN TO 5L NC. PATIENT IS DYSPNIC WITH EXERTION. BREATHING TREATMENTS PER RT SCHEDULED. TELE AND IV DISCONTINUED PER DR BECERRIL. NO ACUTE CHANGES NOTED OR REPORTED AT THIS TIME. WILL CONTINUE TO MONITOR AND PROVIDE CARE NEEDED.
--- NOTE | 2019-09-18 05:03 | NUR ---
SHIFT SUMMARY AOX4. VSS. DENIES PAIN, N/V, OR DYSPNEA. E/U RESPIRATIONS. SPO2 93-96% ON 3L O2. WORE BIPAP T/O NIGHT. LUNGS HAVE WHEEZES T/O. BREATHING TX GIVEN PER RT. PT ANTICIPATING BEING DC TODAY, STATES SHE FEELS "MUCH BETTER". FILOMENA ASSIST TO [facility]. HAS MULTIPLE FAMILY MEMBERS THAT LIVE NEAR HER FOR ASSISTANCE. CALL LIGHT IN REACH.
[2019-09-18] MEDS ORDERED: Culturelle1 CAP PO (11:56)
[2019-09-18] MEDS ORDERED: CEPH500 PO (11:56)
[2019-09-18] MEDS ORDERED: Prednisone10 MG PO (11:59)
[2019-09-18] MEDS ORDERED: TIOT18 INH (12:00)
--- NOTE | 2019-09-18 13:10 | NUR ---
SHIFT SUMMARY PT ALERT AND ORIENTED THROUGOUT THIS SHIFT. PT COOPERATIVE WITH CARE. PT STATES BREATHING VASTLY IMPROVED. PT PROVIDED WITH DISCHARGE INFORMATION AND EDUCATION. PT STATES NO QUESTIONS AT THIS TIME. PT TO VEHICLE BY PRIYANKA Zayas CNA.
== END 2019-09-18 12:50 | disposition home or self-care (01) | DRG 189 ==
LOC: ER 10:00 → PCU 11:17 → MEDS 11:17 → PCU 12:51 → MEDS 09-15 10:29
PROVIDERS: Emergency Medicine; ADMIT Internal Medicine
DX: J96.22 Acute and chronic respiratory failure with hypercapnia (principal); N39.0 Urinary tract infection, site not specified; E66.2 Morbid (severe) obesity with alveolar hypoventilation; Z68.41 Body mass index [BMI] 40.0-44.9, adult; J84.9 Interstitial pulmonary disease, unspecified; B96.20 Unspecified Escherichia coli [E. coli] as the cause of diseases classified elsewhere; W19.XXXA Unspecified fall, initial encounter; D86.9 Sarcoidosis, unspecified; J44.9 Chronic obstructive pulmonary disease, unspecified; F17.210 Nicotine dependence, cigarettes, uncomplicated; M79.662 Pain in left lower leg; Z99.81 Dependence on supplemental oxygen; Z91.14 Patient's other noncompliance with medication regimen
CPT/HCPCS: 36415; 36600; 71045; 80048; 80053; 81001; 82550; 82803; 83880; 84484; 85025; 85027; 87077; 87086; 87186; 93005; 93010; 93971; 94640; 94660; 94762; 97110; 97112; 97116; 97162; 97530; 99285-25; A9270-GY; J1650; J7030; J7512